=== PATIENT | female | born 1980 | race Caucasian/White ===

== ENCOUNTER 2018-09-29 11:25 | Emergency (ER) | payer OTHER ==
[2018-09-29 11:37] VITALS: BP 113/81; PULSE 62; TEMP 98.5; BMI 27.3
[2018-09-29] MEDS ORDERED: DIPHTH,PERTUSS(ACELL),TET 0.5 ML DISP.SYRIN IM ONE ×2 (12:01→12:04)
--- NOTE | 2018-09-29 12:07 | PDOC ---
History of Present Illness - General Chief Complaint: Injury Stated Complaint: INJURY Time Seen by Provider: 09/29/18 11:41 History Source: Patient Exam Limitations: No Limitations - History of Present Illness Initial Comments: 09/29/18 12:02 HISTORY OF PRESENT ILLNESS: 38-year-old woman denies medical history presents emergency Department with laceration to her left third digit sustained with a meat cooler while at work today. Patient states she was cutting meat on a meat cooler when she accidentally caught her third digit of her left hand on the slicer. Patient mainly removed her hand from the blade and washed her hand. Patient applied a dressing to her hands and then came to the emergency department for evaluation. Patient is unsure of her last tetanus immunization No recent travel or sick contacts. PAST MEDICAL HISTORY: Denies past medical history SURGICAL HISTORY: Denies ALLERGIES: No known drug allergies REVIEW OF SYSTEMS General/Constitutional: Denies fever or chills. Denies weakness, weight change. HEENT: Denies change in vision. Denies ear pain or discharge. Denies sore throat. Cardiovascular: Denies chest pain or shortness of breath. Respiratory: Denies cough, wheezing, or hemoptysis. Gastrointestinal: Denies nausea, vomiting, diarrhea or constipation. Denies rectal bleeding. Genitourinary: Denies dysuria, frequency, or change in urination. Musculoskeletal: Denies joint or muscle swelling or pain. Denies neck or back pain. Skin and breasts: Laceration to left middle finger. Neurologic: Denies headache, vertigo, loss of consciousness, or loss of sensation. Psychiatric: Denies depression or anxiety. Endocrine: Denies increased thirst. Denies abnormal weight change. Hematologic/Lymphatic: Denies anemia, easy bleeding, or history of blood clots. Allergic/Immunologic: Denies hives or skin allergy. Denies latex allergy. PHYSICAL EXAM General Appearance: Well-appearing, appropriately dressed. No apparent distress , no intoxication. Respiratory/Chest: Lungs CTAB. No shortness of breath, chest tenderness, respiratory distress, accessory muscle use. No crackles, rales, rhonchi, stridor , wheezing, dullness Cardiovascular: RRR. S1, S2. No JVD, murmur, bradycardia, tachycardia. Integumentary: Approximate 3 cm curved superficial laceration present to the dorsum of the left third digit of the left hand over the DIP joint. Past History - Past Medical History Home Medications: Ambulatory Orders NK [No Known Home Medication] 09/29/18 COPD: No - Immunization History Immunization Up to Date: Yes - Suicide/Smoking/Psychosocial Hx Smoking History: Never smoked Hx Alcohol Use: No Drug/Substance Use Hx: No Substance Use Type: None *Physical Exam - Vital Signs Last Vital Signs Temp Pulse Resp BP Pulse Ox 98.5 F 62 16 113/81 100 09/29/18 11:35 09/29/18 11:35 09/29/18 11:35 09/29/18 11:35 09/29/18 11:35 Moderate Sedation - Procedure Monitoring Vital Signs: Procedure Monitoring Vital Signs Temperature 98.5 F 09/29/18 11:35 Pulse Rate 62 09/29/18 11:35 Respiratory Rate 16 09/29/18 11:35 Blood Pressure 113/81 09/29/18 11:35 O2 Sat by Pulse Oximetry (%) 100 09/29/18 11:35 Procedures - Consent Consent obtained: Verbal, From Patient - Laceration/Wound Repair Left Dorsal Finger 3rd digit Wound Length: 2.6 to 5.0 cm Wound Explored: clean Wound's Depth, Shape: superficial, flap Irrigated w/ Saline: Yes Betadine Prep: Yes Anesthesia: 1% Lidocaine Amount of Anesthetic (ccs): 3 Wound Debrided: minimal Wound Repaired With: Sutures Suture Size/Type: 6:0 Number of Sutures: 5 Layer Closure: No Sterile Dressing Applied: Yes Splint Applied: Yes (finger splint) Sling Applied: No Progress: 09/29/18 12:29 pt tolerated well Medical Decision Making - Medical Decision Making 09/29/18 12:06 A/P: 38-year-old woman with laceration to the third digit of the left hand ~3 cm curved superficial laceration to the dorsum of the third digit of the left hand extending over the DIP Full flexion and extension of fingers Full sensation distal to injury Capillary refill is less than 2 seconds Lab repair-see procedure note for details [facility] Discharge *DC/Admit/Observation/Transfer Diagnosis at time of Disposition: Laceration - Discharge Dispostion Disposition: HOME Condition at time of disposition: Stable Decision to Admit order: No - Referrals Referrals: Solange Prince MD [Primary Care Provider] - - Patient Instructions Printed Discharge Instructions: DI for Suture Removal Additional Instructions: Rest, elevate, avoid strenuous activity or heavy lifting until sutures are removed Leave dressing on for the next 24 hours, Then may remove dressing gently and wash area with soap and water. Reapply bacitracin ointment and dressing daily for the next 5 days On day #6 keep the wound protected and cover as needed until sutures are removed allowing wound to start to dry May use Tylenol or Motrin for pain relief Suture removal in : 7-10 Days - Post Discharge Activity Forms/Work/School Notes: Back to Work
== END 2018-09-29 12:29 | disposition home or self-care (01) ==
LOC: JERFT 11:25
PROC: 3E0234Z Introduction of Serum, Toxoid and Vaccine into Muscle, Percutaneous Approach (ICD-10-PCS; principal; 2018-09-29)
PROC: 0HQGXZZ Repair Left Hand Skin, External Approach (ICD-10-PCS; 2018-09-29)
PROC: 3E0234Z Introduction of Serum, Toxoid and Vaccine into Muscle, Percutaneous Approach (ICD-10-PCS; 2018-09-29)
DX: S61.213A Laceration without foreign body of left middle finger without damage to nail, initial encounter (principal); W31.82XA Contact with other commercial machinery, initial encounter; Y93.G1 Activity, food preparation and clean up; Y92.512 Supermarket, store or market as the place of occurrence of the external cause; Y99.0 Civilian activity done for income or pay
CPT/HCPCS: 90715; 99281-25

== ENCOUNTER 2018-10-07 13:12 | Emergency (ER) | payer OTHER ==
[2018-10-07 13:25] VITALS: BP 120/76; PULSE 98; TEMP 98.6; BMI 21.1
--- NOTE | 2018-10-07 13:37 | PDOC ---
Suture Removal/Wound Check HPI - History of Present Illness Chief Complaint: Suture/Staple Removal(Here) Stated Complaint: SUTURE/STAPLE REMOVAL Time Seen by Provider: 10/07/18 13:29 History Source: Yes: Patient, Old Records Exam Limitations: Yes: No Limitations Treated at: [facility] Date of Last ED visit: 09/29/18 - Previous ED Treatment Type of procedure performed on last visit: Yes: Laceration Repair Tetanus Immunization: Yes: Given at last ED visit Past History - Past Medical History Allergies/Adverse Reactions: Allergies Allergy/AdvReac Type Severity Reaction Status Date / Time No Known Allergies Allergy Verified 10/07/18 13:23 Home Medications: Ambulatory Orders NK [No Known Home Medication] 09/29/18 COPD: No - Immunization History Immunization Up to Date: Yes - Suicide/Smoking/Psychosocial Hx Smoking History: Never smoked Hx Alcohol Use: No Drug/Substance Use Hx: No Substance Use Type: None Suture Removal/Wound Check PE - Physical Exam Laceration/Wound Check Symptoms: reports: None Current Severity Level: None Maximum Severity Level: None Pain Localization: None Location of Laceration/Wound: left: Finger (3rd digit) Pain Radiation: None *Review of Systems - Review of Systems Able to Perform ROS?: Yes All Other Systems: Reviewed and Negative *Physical Exam - Vital Signs Last Vital Signs Temp Pulse Resp BP Pulse Ox 98.6 F 98 H 18 120/76 100 10/07/18 13:24 10/07/18 13:24 10/07/18 13:24 10/07/18 13:24 10/07/18 13:24 - Physical Exam General Appearance: Yes: Appropriately Dressed. No: Apparent Distress Integumentary: positive: Normal Color, Dry, Warm, Other (Suture line with well approximation of wound. No erythema, discharge or drainage present. There is no streaking.) Moderate Sedation - Procedure Monitoring Vital Signs: Procedure Monitoring Vital Signs Temperature 98.6 F 10/07/18 13:24 Pulse Rate 98 H 10/07/18 13:24 Respiratory Rate 18 10/07/18 13:24 Blood Pressure 120/76 10/07/18 13:24 O2 Sat by Pulse Oximetry (%) 100 10/07/18 13:24 *DC/Admit/Observation/Transfer Diagnosis at time of Disposition: Visit for suture removal - Discharge Dispostion Disposition: HOME Condition at time of disposition: Stable Decision to Admit order: No - Referrals - Patient Instructions Printed Discharge Instructions: DI for Suture Removal Additional Instructions: Rest, allow completion of healing May continue using bacitracin ointment until scabs are completely resolved Keep wound covered and out of the sun for at least one year as scar tissue will sweet pickle maker and absorbable more sunlight causing a darker discoloration May use vitamin E, aloe, or other oils recommended for skin and scar healing - Post Discharge Activity
== END 2018-10-07 13:45 | disposition home or self-care (01) ==
LOC: JERFT 13:12
DX: Z48.02 Encounter for removal of sutures (principal)
CPT/HCPCS: 99281-25

== ENCOUNTER 2021-01-26 17:32 | Emergency (ER) | payer OTHER ==
[2021-01-26 17:41] VITALS: BP 107/77; PULSE 108; TEMP 97.8; BMI 23.4
[2021-01-26 18:31] LABS: EPI CELLS 6 /uL (0-25.1); HCG,QUALITATIVE URINE Negative; HYALINE CASTS 0 /uL (0-3.1); URINE APPEARANCE CLOUDY; URINE BACTERIA 797 /uL (0-1359); URINE BILIRUBIN NEGATIVE (NEGATIVE); URINE COLOR YELLOW; URINE GLUCOSE (UA) NEGATIVE (NEGATIVE); URINE KETONE NEGATIVE (NEGATIVE); URINE LEUK ESTERASE 2+ (NEGATIVE); URINE NITRITE NEGATIVE (NEGATIVE); URINE PROTEIN NEGATIVE (NEGATIVE); URINE RBC 24 /uL (0-23.9); URINE UROBILINOGEN 0.2 mg/dL (0.2-1.0); URINE WBC 164 /uL (0-25.8)
[2021-01-26] MEDS ORDERED: NITROFURANTOIN MACROCRYSTAL 50 MG CAPSULE (FP) ONE (18:45)
[2021-01-26] MEDS ORDERED: NITROFURANTOIN MACROCRYSTAL 50 MG CAPSULE (FP) PO SCH (19:00)
== END 2021-01-26 18:48 | disposition home or self-care (01) ==
LOC: JERFT 17:32
DX: N30.00 Acute cystitis without hematuria (principal)
CPT/HCPCS: 81003; 84703; 87086; 87186; 99284-25

== ENCOUNTER 2024-08-22 04:13 | Day surgery (SDC) | payer OTHER ==
[2024-08-18 09:35] VITALS: BMI 23.4
[2024-08-22] MEDS ORDERED: BUPIVACAINE HCL/PF 0.25% (2.5MG/ML) 10 ML VIAL ONE (07:13)
[2024-08-22] MEDS ORDERED: BUPIVACAINE HCL/PF 0.5% (5MG/ML) 10 ML VIAL ONE (07:13)
[2024-08-22] MEDS ORDERED: ROCURONIUM BROMIDE 50 MG/5 ML SYRINGE ONE (07:49)
[2024-08-22] MEDS ORDERED: PROPOFOL 20 ML ONE (07:49)
[2024-08-22] MEDS ORDERED: SUCCINYLCHOLINE CHLORIDE 200 MG/10 ML SYRINGE ONE (07:49)
[2024-08-22] MEDS ORDERED: DEXAMETHASONE SOD PHOSPHATE 4 MG/1 ML VIAL ONE (07:49)
[2024-08-22] MEDS ORDERED: MIDAZOLAM HCL 2 MG/2 ML SINGLE DOSE VIAL ONE (07:49)
[2024-08-22] MEDS ORDERED: ONDANSETRON 4 MG/2 ML VIAL ONE (07:49)
[2024-08-22] MEDS: ceFAZolin SODIUM 1 GM VIAL IVPB ONE (08:20)
[2024-08-22] MEDS: BUPIVACAINE HCL/PF 0.5% (5 MG/ML) 30 ML VIAL IJ ONE ×2 (08:28)
[2024-08-22] MEDS: LIDOCAINE HCL 1%, 10 MG/ML (20ML VIAL) INF ONE ×2 (08:28)
[2024-08-22] MEDS ORDERED: SUGAMMADEX SODIUM 200 MG/2 ML VIAL ONE (08:41)
[2024-08-22 11:44] VITALS: BP 113/76; PULSE 77; RESP 17; TEMP 97.8
== END 2024-08-22 11:25 | disposition home or self-care (01) ==
LOC: JASU-SURG 04:13
PROVIDERS: ATTEND Surgery
PROC: 0JB83ZX Excision of Abdomen Subcutaneous Tissue and Fascia, Percutaneous Approach, Diagnostic (ICD-10-PCS; principal; 2024-08-22 08:00)
DX: D17.1 Benign lipomatous neoplasm of skin and subcutaneous tissue of trunk (principal)
CPT/HCPCS: 81025; 88304-TC; 94760